=== PATIENT | male | born 1950 | race Asian ===

== ENCOUNTER 2024-11-30 08:26 | Emergency (ER) | payer MEDICARE, BC ==
[~2024-11-30] VITALS: Ht 172.7 cm; Wt 59.0 kg
[2024-11-30] MEDS: MAGNESIUM HYDROXIDE 400MG/5ML 30ML UDC PO ONE (08:54)
[2024-11-30] MEDS: VISCOUS LIDOCAINE 2% 15 ML UDC MM ONE (08:54)
[2024-11-30] MEDS: FAMOTIDINE 20MG/2ML VIAL IV ONE (09:02)
[2024-11-30 09:16] LABS: BASOPHILS % 0.3 % (0.0-2.0); EOSINOPHILS % 4.2 % (0.0-5.0); HEMATOCRIT. 39.2 % (42.0-52.0); HEMOGLOBIN. 12.3 g/dL (14.0-18.0); LYMPHOCYTES % 11.2 % (20.0-50.0); MEAN PLATELET VOLUME 8.0 fl (7.4-10.4); MONOCYTES % 9.5 % (2.0-8.0); NEUTROPHILS % 74.8 % (40.0-76.0); PLATELET 170 x1000/uL (130-400); RED BLOOD CELL COUNT 4.94 mill/uL (4.7-6.1); RED CELL DISTRIBUTION WIDTH 16.2 % (11.6-14.6)
[2024-11-30 09:42] LABS: CREATININE 1.0 mg/dL (0.6-1.3)
[2024-11-30 09:43] LABS: UREA NITROGEN BLOOD 18 mg/dL (9-23)
[2024-11-30 10:03] LABS: TROPONIN I HIGH SENSITIVITY 65 ng/L (3.0-53)
[2024-11-30] MEDS: MAGNESIUM/ALUMINUM HYDROXIDE/SIMETHICONE 30ML UDC PO SCH (12:55)
[2024-11-30 13:18] LABS: TROPONIN I HIGH SENSITIVITY 65 ng/L (3.0-53)
[2024-11-30] MEDS ORDERED: MAG355OR21 PO (13:24)
[2024-11-30 13:57] VITALS: BP 120/64; PULSE 65; RESP 12; TEMP 36.8; O2SAT 100
== END 2024-11-30 14:12 | disposition home or self-care (01) ==
LOC: ER 08:26
DX: K21.9 Gastro-esophageal reflux disease without esophagitis (principal); R07.9 Chest pain, unspecified; I10 Essential (primary) hypertension; E03.9 Hypothyroidism, unspecified; Z95.1 Presence of aortocoronary bypass graft
CPT/HCPCS: 99285; 96374; 71045; 80048; 82962; 85025; 84484; 36415; 93005; J1308